=== PATIENT | male | born 1975 | race African-American/Black ===

== ENCOUNTER → 2016-05-25 | Outpatient (CLI) | payer OTHER ==
[~2016-05-25] MED LIST: ALLE180T33 PO; AMIT10TA PO; CONRAY-43 43% 50ML VIAL (Q9960) As Ordered ONE; CYCL10TA PO; GABA-283 PO; LISI10TA4 PO; MAXA10TA14 PO; OMEG100011 PO; PIRO20CA2 PO; SILD50TA GT; ZANTTAB PO; ZOLO100T PO
--- NOTE | 2016-05-25 12:16 | REP ---
LEFT SHOULDER MRI WITHOUT AND WITH CONTRAST ARTHROGRAM: 05/25/2016 CLINICAL HISTORY: Shoulder pain. Order states noncontrast MR was suspicious for SLAP tear. Neither the images or report are provided from that study. TECHNIQUE: Coronal T1 with fat suppressed coronal and axial T2 images followed by gadolinium arthrogram injection with axial fat suppressed T1 and PD sequences, coronal T1 and fat suppressed T2, sagittal T2 and an ABER fat suppressed T1 sequence. FINDINGS: The AC joint shows some mild hypertrophic changes inferiorly indenting musculotendinous junction of the rotator cuff. There is trace amount of bursal surface fraying along the supraspinatus and minimal tendinosis tendinopathy evident. No full-thickness tear or retraction of that tendon is evident. No atrophy of the muscle belly. Glenohumeral joint does not show any significant effusion and there is no visible paralabral cyst. Biceps tendon is seated in its groove. Subscapularis tendon and muscle are intact as are the infraspinatus and teres minor tendons and muscles. The biceps labral complex appear grossly intact. Undermining of the superior labrum noted on the coronal and axial arthrogram images consistent with a SLAP tear of the superior labrum. The anterior and posterior labrum do not show definite tears. There is a type 2 anterior capsular insertion on the glenoid and some ballooning of the posterior capsular margin as well. No bone bruise or fracture of the humeral head, bony coracoid, glenoid and acromion. The spinal glenoid notch is without mass or fluid collection. The ABER sequence confirms the above. The coracohumeral ligaments are grossly intact. The coracoclavicular ligament not included in the coronal field of view. No loose body in the glenohumeral joint on the contrast arthrogram images. Fluid tracks into the subcoracoid bursa. IMPRESSION: 1. Tendinopathy of the supraspinatus with some bursal surface fraying but no full-thickness tear, retraction of the tendon or atrophy of the muscle belly. 2. Glenohumeral joint shows evidence of a superior labral tear or SLAP lesion on contrast arthrogram images. No loose body. 3. The subscapularis, infraspinatus and teres minor without significant findings. 4. Biceps tendon well-seated in its groove and biceps labral complex intact. Signed by Anshu Little MD 05/25/2016 05:06 P
--- NOTE | 2016-05-25 17:10 | REP ---
Procedure: Left shoulder arthrogram The procedure was performed under the direct supervision of Dr. Little. History: Left shoulder pain The benefits and risks including but not limited to pain, infection, bleeding and anaphylaxis were explained to the patient and informed consent was obtained. Technique: The left glenohumeral joint space was localized using fluoroscopic guidance. The skin was prepped and draped in a sterile fashion. 1% lidocaine was used as a local anesthetic. Using fluoroscopic guidance a 22 gauge spinal needle was inserted and advanced into the joint. 0.5 ml of Conray 43 was injected to verify placement. 11 ml of a solution containing 20 ml of sterile saline and 0.15 ml of ProHance was injected into the joint. The needle was removed and the patient was taken to MRI for postprocedural imaging. The the patient tolerated the procedure well and there were no immediate complications. 1 second of fluoro time was utilized for this procedure. Reviewed by SENA George 05/25/2016 04:14 PSigned by Anshu Little MD 05/25/2016 05:01 P
== END ==
LOC: M RADPRO 09:15
PROVIDERS: ATTEND Physician Assistant Medical
DX: M24.812 Other specific joint derangements of left shoulder, not elsewhere classified (principal)
CPT/HCPCS: 23350; 73223; 77002; A9576; Q9960

== ENCOUNTER 2016-05-27 00:29 | Emergency (ER) | payer OTHER ==
[~2016-05-27] VITALS: Ht 180.3 cm; Wt 95.3 kg
[2016-05-27] MEDS ORDERED: PIRO20CA2 PO (00:53)
[2016-05-27] MEDS ORDERED: ZOLO100T PO (00:53)
[2016-05-27] MEDS ORDERED: OMEG100011 PO (00:53)
[2016-05-27] MEDS ORDERED: MAXA10TA14 PO (00:53)
[2016-05-27] MEDS ORDERED: CYCL10TA PO (00:53)
[2016-05-27] MEDS ORDERED: LISI10TA4 PO (00:53)
[2016-05-27] MEDS ORDERED: ALLE180T33 PO (00:53)
[2016-05-27] MEDS ORDERED: ZANTTAB PO (00:53)
[2016-05-27] MEDS ORDERED: GABA-283 PO (00:53)
[2016-05-27] MEDS ORDERED: AMIT10TA PO (00:53)
[2016-05-27] MEDS ORDERED: SILD50TA GT (00:53)
[2016-05-27] MEDS ORDERED: GI COCKTAIL 50ML BTL(HYOSCYAMINE/MAALOX/LIDOCAINE VISCOUS)(1:3:1) PO ONE (01:30)
[2016-05-27 06:25] VITALS: BP 122/80
--- NOTE | 2016-05-27 08:11 | REP ---
Clinical: Chest pain. Technique: PA and lateral. Comparison: None. Findings: Mediastinum and cardiac silhouette are normal. Lung [place] are relatively clear without focal consolidation, effusion, or pneumothorax. Trace basilar atelectasis cannot be excluded and should be correlated with physical examination and auscultation. Skeletal structures intact. Impression: Relatively normal examination. Cannot exclude trace left basilar atelectasis and element of bronchitis. Correlation with physical examination and auscultation. No focal consolidation. Signed by Nate Neely MD 05/27/2016 08:02 A
--- NOTE | 2016-05-27 16:38 | ECGEPIP ---
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
--- NOTE | 2016-05-27 16:39 | ECGEPIP ---
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
== END 2016-05-27 06:42 | disposition home or self-care (01) ==
LOC: EDBD 00:29 → M ED 01:25
DX: R07.89 Other chest pain (principal); I10 Essential (primary) hypertension; K21.9 Gastro-esophageal reflux disease without esophagitis; G43.909 Migraine, unspecified, not intractable, without status migrainosus; M54.9 Dorsalgia, unspecified; Z79.899 Other long term (current) drug therapy

== ENCOUNTER → 2018-05-29 | Outpatient (REF) | payer OTHER ==
[~2018-05-29] MED LIST changes: -CONRAY-43 43% 50ML VIAL (Q9960) As Ordered ONE; -GABA-283 PO; +GABA-845 PO
== END ==
LOC: M SFHCLERA 15:20
PROVIDERS: ATTEND Physician Assistant
DX: J02.9 Acute pharyngitis, unspecified (principal)

== ENCOUNTER → 2019-10-10 | Outpatient (REF) | payer OTHER ==
[~2019-10-10] MED LIST changes: +CYCL-707 PO; -CYCL10TA PO; +ZANT150T40 PO; -ZANTTAB PO
== END ==
LOC: M LAB REF 14:41
PROVIDERS: ATTEND Physician Assistant
DX: Z11.59 Encounter for screening for other viral diseases (principal); Z20.828 Contact with and (suspected) exposure to other viral communicable diseases

== ENCOUNTER → 2020-12-09 | Outpatient (CLI) | payer OTHER ==
[~2020-12-09] MED LIST changes: -AMIT10TA PO; +AMIT10TA7 PO; +GABA-283 PO; -GABA-845 PO; +LISI10TA22 PO; -LISI10TA4 PO
--- NOTE | 2020-12-09 17:15 | REP ---
INDICATION: KNEE PAIN. COMPARISON: None. TECHNIQUE: Sagittal spin-echo proton density, T2 STIR and T2 FLASH. Coronal spin-echo proton density and fat suppressed proton density. Axial fat suppressed proton density. FINDINGS: In the posterior horn of the lateral meniscus there is T2 hyper signal which is contiguous with the posterior meniscal surface and nearly contiguous with the inferior articular surface. The anterior horn of the lateral meniscus is unremarkable. The anterior and posterior horns of the medial meniscus are within normal limits. The anterior and posterior cruciate ligaments are intact. The quadriceps and patellar tendons are intact. 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 The medial and lateral collateral ligaments are intact. The medial and lateral patellar retinacula are intact. There is thinning and irregularity of the medial compartmental articular cartilages. In the subchondral anterior proximal medial tibial metaphysis there is a patch of T2 hyper signal. The posterior lateral femoral condyle there is patchy T2 hyper signal in a subchondral location. There is no joint effusion or Ga's cyst. IMPRESSION: 1. There is no definite acute internal derangement, however, there are meniscal signal changes seen in the posterior horn of the lateral meniscus as described above. A subtle peripheral tear cannot be completely ruled out. 2. There is subchondral edema in the proximal medial tibial metaphysis and the lateral femoral condyle likely secondary to chondromalacia and repeated micro trauma. 3. Other findings as described above. <Electronically signed by Orlando Alex > 12/09/20 [id number]
--- NOTE | 2020-12-09 17:20 | REP ---
INDICATION: SEVERE BILATERAL KNEE PAIN. COMPARISON: None. TECHNIQUE: Sagittal spin-echo proton density, T2 STIR and T2 FLASH. Coronal spin-echo proton density and fat suppressed proton density. Axial fat suppressed proton density. FINDINGS: The anterior and posterior horns of the medial meniscus are within normal limits. The anterior and posterior horns of the lateral meniscus are within normal limits. The anterior and posterior cruciate ligaments are intact. The quadriceps and patellar tendons are intact. 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 The medial and lateral collateral ligaments are intact. The medial and lateral patellar retinacula are intact. There is thinning and irregularity of all articular cartilages. There is medial compartmental narrowing and tricompartmental marginal osteophytosis. There is patchy T2 hyper signal seen in the subchondral proximal medial tibial metaphysis. There is T2 hyper signal seen in the subchondral posterior medial femoral condyle. There is no joint effusion or Ga's cyst. IMPRESSION: 1. There is no evidence of acute internal derangement. 2. 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 3. Other findings as described above. <Electronically signed by Orlando Alex > 12/09/20 [id number]
== END ==
LOC: M RAD 15:38
PROVIDERS: ATTEND Internal Medicine
DX: M94.262 Chondromalacia, left knee (principal); M25.562 Pain in left knee; M25.561 Pain in right knee; M94.261 Chondromalacia, right knee

== ENCOUNTER → 2021-11-04 | Outpatient (REF) | payer OTHER ==
[~2021-11-04] MED LIST changes: -MAXA10TA14 PO; +RIZA10TA64 PO
[2021-11-04 14:57] LABS: GC DNA AMPLIFICATION NEGATIVE (NEGATIVE)
== END ==
LOC: M WUC 12:37
PROVIDERS: ATTEND Physician Assistant
DX: N39.0 Urinary tract infection, site not specified (principal)

== ENCOUNTER → 2022-04-05 | Outpatient (CLI) | payer OTHER | LOC: M SOG 10:10 | PROVIDERS: ATTEND Orthopaedic Surgery | DX: M17.0 Bilateral primary osteoarthritis of knee (principal) ==

== ENCOUNTER → 2022-09-21 | Outpatient (CLI) | payer OTHER ==
[2022-09-21 17:33] LABS: HIV 1&2 SCREEN NEGATIVE (NEGATIVE)
[2022-09-21 19:07] LABS: GC DNA AMPLIFICATION NEGATIVE (NEGATIVE)
== END ==
LOC: M WUC 12:43
PROVIDERS: ATTEND Nurse Practitioner Family
DX: Z11.3 Encounter for screening for infections with a predominantly sexual mode of transmission (principal); R30.0 Dysuria

== ENCOUNTER → 2022-12-02 | Outpatient (CLI) | payer OTHER ==
[~2022-12-02] MED LIST changes: -GABA-283 PO; +GABA-284 PO
== END ==
LOC: M SOG 07:54
PROVIDERS: ATTEND Orthopaedic Surgery
DX: M17.0 Bilateral primary osteoarthritis of knee (principal)

== ENCOUNTER → 2022-12-09 | Outpatient (CLI) | payer OTHER ==
[~2022-12-09] MED LIST changes: +GASTROGRAFIN SOLUTION 30ML As Ordered ONE; +ISOVUE-370 76% 100ML VIAL As Ordered ONE
== END ==
LOC: M RAD 07:59
PROVIDERS: ATTEND Internal Medicine
DX: K45.8 Other specified abdominal hernia without obstruction or gangrene (principal)
CPT/HCPCS: 74177; Q9963; Q9967

== ENCOUNTER → 2023-06-06 | Outpatient (CLI) | payer OTHER ==
[~2023-06-06] MED LIST changes: -GASTROGRAFIN SOLUTION 30ML As Ordered ONE; -ISOVUE-370 76% 100ML VIAL As Ordered ONE
[2023-06-06 15:33] LABS: BASO # 0.1 10^3/uL (0.0-0.2); BASO % 0.6 % (0.0-1.0); EOS # 0.4 10^3/uL (0.0-0.5); EOS % 4.7 % (0.0-3.0); HEMOGLOBIN 14.3 g/dl (13.5-17.5); LYMPH # 1.8 10^3/uL (1.5-5.0); LYMPH % 18.6 % (24.0-44.0); MEAN CORPUSCULAR HEMOGLOBIN 31.5 pg (27.0-33.0); MEAN CORPUSCULAR HGB CONC 33.3 g/dl (32.0-36.5); MEAN CORPUSCULAR VOLUME 94.7 fl (80.0-96.0); MONO # 0.8 10^3/uL (0.0-0.8); MONO % 8.5 % (2.0-8.0); NEUTROPHILS # 6.3 10^3/uL (1.5-8.5); NEUTROPHILS % 67.3 % (36.0-66.0); PLATELET COUNT, AUTOMATED 317 10^3/uL (150-450); RED BLOOD COUNT 4.54 10^6/uL (4.30-6.10); WHITE BLOOD COUNT 9.4 10^3/uL (4.0-10.0)
[2023-06-06 15:39] LABS: ERYTHROCYTE SEDIMENTATION RATE 34 mm/hr (0-15)
== END ==
LOC: M PLALAB 13:45
PROVIDERS: ATTEND Orthopaedic Surgery
DX: M25.561 Pain in right knee (principal)

== ENCOUNTER → 2023-06-08 | Outpatient (CLI) | payer OTHER | LOC: M PLARAD 15:13 | PROVIDERS: ATTEND Orthopaedic Surgery | DX: M17.0 Bilateral primary osteoarthritis of knee (principal); M25.462 Effusion, left knee ==

== ENCOUNTER → 2023-06-24 | Outpatient (CLI) | payer OTHER | LOC: M RAD 10:56 | PROVIDERS: ATTEND Orthopaedic Surgery | DX: M25.561 Pain in right knee (principal) ==

== ENCOUNTER → 2024-07-03 | Outpatient (REF) | payer OTHER | LOC: M LAB REF 16:41 | PROVIDERS: ATTEND Neuromusculoskeletal Medicine, Sports Medicine | DX: M17.12 Unilateral primary osteoarthritis, left knee (principal) ==

== ENCOUNTER → 2024-10-29 | Outpatient (CLI) | payer OTHER ==
[~2024-10-29] MED LIST changes: +AMIT10TA11 PO; -AMIT10TA7 PO; +AMIT25TA19 PO; +MELA5TAB58 PO; +RANI15TA PO
[2024-10-29 12:05] LABS: BASO # 0.1 10^3/uL (0.0-0.2); BASO % 0.8 % (0.0-1.0); EOS # 0.1 10^3/uL (0.0-0.5); EOS % 0.9 % (0.0-3.0); LYMPH # 1.9 10^3/uL (1.5-5.0); LYMPH % 25.4 % (24.0-44.0); MONO # 0.6 10^3/uL (0.0-0.8); MONO % 8.1 % (2.0-8.0); NEUTROPHILS # 4.8 10^3/uL (1.5-8.5); NEUTROPHILS % 64.5 % (36.0-66.0); PLATELET COUNT, AUTOMATED 288 10^3/uL (150-450)
[2024-10-29 12:31] LABS: ALT/SGPT 34.0 U/L (7.0-40); AST/SGOT 24.0 U/L (<34); CALCIUM LEVEL 10.2 MG/DL (8.5-10.1); CARBON DIOXIDE LEVEL 29.0 MMOL/L (20-31); CHLORIDE LEVEL 105.0 MMOL/L (98-107); CREATININE FOR GFR 1.2 MG/DL (0.70-1.30); GLOMERULAR FILTRATION RATE 74.1 (>60); POTASSIUM SERUM 4.4 MMOL/L (3.5-5.1); SODIUM LEVEL 143.0 MMOL/L (136-145)
== END ==
LOC: M RAD 11:33
PROVIDERS: ATTEND Neuromusculoskeletal Medicine, Sports Medicine
DX: M17.0 Bilateral primary osteoarthritis of knee (principal); M25.462 Effusion, left knee; M25.562 Pain in left knee

== ENCOUNTER → 2024-10-31 | Outpatient (REF) | payer OTHER | LOC: M LAB REF 16:45 | PROVIDERS: ATTEND Neuromusculoskeletal Medicine, Sports Medicine | DX: M25.562 Pain in left knee (principal) ==

== ENCOUNTER 2024-11-04 09:15 | Outpatient (RCR) | payer OTHER ==
[2024-11-12] MEDS ORDERED: ADDE20CA3 PO (08:32)
[2024-11-12] MEDS ORDERED: VITA200030 PO (08:34)
[2024-11-12] MEDS ORDERED: CYAN100049 PO (08:34)
[2024-11-12] MEDS ORDERED: DICL100G10 TOP (08:37)
[2024-11-12] MEDS ORDERED: BENA25CA4 PO (08:37)
[2024-11-12] MEDS ORDERED: JARD1TAB3 PO (08:38)
[2024-11-12] MEDS ORDERED: FAMO40TA3 PO (08:39)
[2024-11-12] MEDS ORDERED: FLON1SPR NARES (08:39)
[2024-11-12] MEDS ORDERED: LOSA25TA13 PO (08:41)
[2024-11-12] MEDS ORDERED: GABA-1172 PO (08:41)
[2024-11-12] MEDS ORDERED: THERTAB52 PO (08:43)
[2024-11-12] MEDS ORDERED: RIZA10TA58 PO (08:45)
[2024-11-12] MEDS ORDERED: B-2100TA PO (08:45)
[2024-11-12] MEDS ORDERED: TIZA10TA PO (08:47)
[2024-11-12] MEDS ORDERED: ROSU40TA81 PO (08:47)
[2024-11-12] MEDS ORDERED: OLOP5DRO17 OU (08:50)
[2024-11-12] MEDS ORDERED: CELLOPD OU (08:52)
[2024-11-12] MEDS ORDERED: REFR0.5D8 OU (08:52)
[2024-11-13] MEDS ORDERED: ASPI81TAEC PO (09:48)
[2024-11-13] MEDS ORDERED: FERR1TAB8 PO (09:48)
[2024-11-19] MEDS ORDERED: VALI2TAB PO (19:20)
[2024-11-19] MEDS ORDERED: REGL10TA6 PO (19:51)
== END 2024-11-26 ==
LOC: M PT 09:15
PROVIDERS: ATTEND Neuromusculoskeletal Medicine, Sports Medicine
DX: Z47.1 Aftercare following joint replacement surgery (principal); M17.0 Bilateral primary osteoarthritis of knee

== ENCOUNTER 2024-11-12 06:24 | Observation (INO) | payer OTHER ==
[2024-11-12] VITALS (7 sets, daily range): BP systolic 114–129; BP diastolic 70–83; TEMP 97.1–98.6; O2SAT 95–99
[~2024-11-12] VITALS: Ht 180.3 cm; Wt 93.6 kg
[2024-11-12] MEDS ORDERED: LR 1,000 ML IV SCH (06:30)
[2024-11-12] MEDS ORDERED: MIDAZOLAM INJ 2 MG/2 ML VIAL As Ordered ONE (07:07)
[2024-11-12] MEDS ORDERED: LIDOCAINE 2% 100 MG/5 ML SDV (FOR ANES.) As Ordered ONE (07:08)
[2024-11-12] MEDS ORDERED: ONDANSETRON 4MG 2ML VIAL As Ordered ONE (07:08)
[2024-11-12] MEDS: ROPIvacaine 0.5% 30ML VIAL PN ONE (07:35)
[2024-11-12] MEDS: dexAMETHasone 10 MG/1 ML VIAL PRES.FREE PN ONE (07:35)
[2024-11-12] MEDS ORDERED: MED REC IN PROGRESS XX SCH (07:55)
[2024-11-12] MEDS: MIDAZOLAM INJ 2 MG/2 ML VIAL IV PRN (07:55)
[2024-11-12] MEDS: TRANEXAMIC ACID 100 MG/ML 10ML VIAL As Ordered ONE (08:29)
[2024-11-12] MEDS ORDERED: ADDE20CA3 PO (08:32)
[2024-11-12] MEDS ORDERED: CYAN100049 PO (08:34)
[2024-11-12] MEDS ORDERED: VITA200030 PO (08:34)
[2024-11-12] MEDS ORDERED: DICL100G10 TOP (08:37)
[2024-11-12] MEDS ORDERED: BENA25CA4 PO (08:37)
[2024-11-12] MEDS ORDERED: JARD1TAB3 PO (08:38)
[2024-11-12] MEDS ORDERED: FAMO40TA3 PO (08:39)
[2024-11-12] MEDS ORDERED: FLON1SPR NARES (08:39)
[2024-11-12] MEDS ORDERED: LOSA25TA13 PO (08:41)
[2024-11-12] MEDS ORDERED: GABA-1172 PO (08:41)
[2024-11-12] MEDS ORDERED: THERTAB52 PO (08:43)
[2024-11-12] MEDS ORDERED: GLYCOPYRROLATE INJ 0.2 MG/ML 2 ML VIAL As Ordered ONE (08:44)
[2024-11-12] MEDS ORDERED: B-2100TA PO (08:45)
[2024-11-12] MEDS ORDERED: RIZA10TA58 PO (08:45)
[2024-11-12] MEDS ORDERED: TIZA10TA PO (08:47)
[2024-11-12] MEDS ORDERED: ROSU40TA81 PO (08:47)
[2024-11-12] MEDS ORDERED: OLOP5DRO17 OU (08:50)
[2024-11-12] MEDS ORDERED: REFR0.5D8 OU (08:52)
[2024-11-12] MEDS ORDERED: CELLOPD OU (08:52)
[2024-11-12] MEDS ORDERED: HOME MED LIST COMPLETE! XX SCH (08:55)
[2024-11-12] MEDS: VANCOMYCIN 1000MG/20ML VIAL As Ordered ONE (09:18)
[2024-11-12] MEDS: ceFAZolin SOD 2 GM IV ONCE IV ONE (09:23)
[2024-11-12] MEDS: KETOROLAC 30 MG/ML 1 ML VIAL As Ordered ONE (10:53)
[2024-11-12] MEDS ORDERED: MORPHINE 4 MG/ML 1 ML VIAL IV PRN ×2 (11:00→11:10)
[2024-11-12] MEDS ORDERED: ONDANSETRON 4MG 2ML VIAL IV PRN ×2 (11:00→11:10)
[2024-11-12] MEDS ORDERED: FLUTICASONE PROPIONATE 0.05% NASAL SPRAY 16 GM NARES PRN (11:55)
[2024-11-12] MEDS ORDERED: OLOPATADINE 0.1% OPHTH SOL 5ML OU PRN (11:55)
[2024-11-12] MEDS ORDERED: MOM 30 ML SUSPENSION UDC PO PRN (11:55)
[2024-11-12] MEDS ORDERED: RIZATRIPTAN MLT 10 MG TAB PO PRN (11:55)
[2024-11-12] MEDS: LR 1,000 ML IV SCH (12:01)
[2024-11-12] MEDS ORDERED: PILL CUTTER 1 EACH XX PRN (12:20)
[2024-11-12] MEDS: ACETAMINOPHEN *IV* 1,000 MG in IV 1 EA IV SCH (14:34)
[2024-11-12] MEDS: GABAPENTIN 300 MG CAP PO SCH (16:35)
[2024-11-12] MEDS: ceFAZolin SODIUM 2 GM in DEXTROSE 5% (D5W) ADV/MINI-BAG 50 ML IV SCH (17:36)
[2024-11-12] MEDS: HYDROmorphone 2 MG TAB PO PRN (18:45)
[2024-11-12] MEDS: dexAMETHasone 10 MG/1 ML VIAL PRES.FREE IV ONE (18:46)
[2024-11-12] MEDS: ROSUVASTATIN 10 MG TAB PO SCH (21:36)
[2024-11-12] MEDS: MULTIVITAMINS/MINERALS THERAP 1 TAB PO SCH (21:37)
[2024-11-12] MEDS: AMITRIPTYLINE 25 MG TABLET PO SCH (21:37)
[2024-11-12] MEDS: FAMOTIDINE 20 MG TAB PO SCH (21:39)
[2024-11-12] MEDS: LOSARTAN 25 MG TAB PO SCH (21:39)
[2024-11-13] VITALS: BP 118/70; TEMP 97.5; O2SAT 98
[2024-11-13 04:30] VITALS: BP 104/64; TEMP 97.1; O2SAT 97
[2024-11-13 07:53] LABS: BASO # 0.0 10^3/uL (0.0-0.2); BASO % 0.1 % (0.0-1.0); EOS # 0.0 10^3/uL (0.0-0.5); EOS % 0.0 % (0.0-3.0); LYMPH # 1.8 10^3/uL (1.5-5.0); LYMPH % 8.4 % (24.0-44.0); MONO # 1.8 10^3/uL (0.0-0.8); MONO % 8.7 % (2.0-8.0); NEUTROPHILS # 17.4 10^3/uL (1.5-8.5); NEUTROPHILS % 82.2 % (36.0-66.0); PLATELET COUNT, AUTOMATED 343 10^3/uL (150-450)
[2024-11-13 08:00] VITALS: BP 122/87; TEMP 98.5; O2SAT 95
[2024-11-13] MEDS: FERROUS SULFATE 325 MG TAB PO SCH (08:19)
[2024-11-13 08:20] LABS: CALCIUM LEVEL 9.5 MG/DL (8.5-10.1); CARBON DIOXIDE LEVEL 23.0 MMOL/L (20-31); CHLORIDE LEVEL 104.0 MMOL/L (98-107); CREATININE FOR GFR 1.23 MG/DL (0.70-1.30); GLOMERULAR FILTRATION RATE 72.0 (>60); MAGNESIUM LEVEL 1.8 MG/DL (1.8-2.4); POTASSIUM SERUM 4.5 MMOL/L (3.5-5.1); SODIUM LEVEL 135.0 MMOL/L (136-145)
[2024-11-13] MEDS: ASCORBIC ACID 500 MG TAB PO SCH (08:20)
[2024-11-13] MEDS: CYANOCOBALAMIN 500 MCG TAB PO SCH (08:20)
[2024-11-13] MEDS: SENNA 8.6 MG TAB PO SCH (08:20)
[2024-11-13] MEDS: ASPIRIN 81 MG ENTERIC TABLET PO SCH (08:20)
[2024-11-13] MEDS: VITAMIN D 1,000 INTERNATIONAL UNITS TABLET PO SCH (08:21)
[2024-11-13] MEDS: DEXTROAMPHETAMINE/AMPHETAMINE 5 MG *ER* CAPSULE PO SCH (09:45)
[2024-11-13] MEDS ORDERED: FERR1TAB8 PO (09:48)
[2024-11-13] MEDS ORDERED: ASPI81TAEC PO (09:48)
== END 2024-11-13 10:50 | disposition home health service (06) ==
LOC: M SDC 06:24 → M RR INP 06:25 → M MS5PR 14:45
PROVIDERS: ADMIT Internal Medicine; ATTEND Neuromusculoskeletal Medicine, Sports Medicine
DX: M17.12 Unilateral primary osteoarthritis, left knee (principal); I10 Essential (primary) hypertension; R73.03 Prediabetes; E78.5 Hyperlipidemia, unspecified; G62.9 Polyneuropathy, unspecified; F43.10 Post-traumatic stress disorder, unspecified; F90.9 Attention-deficit hyperactivity disorder, unspecified type; G43.909 Migraine, unspecified, not intractable, without status migrainosus; K21.9 Gastro-esophageal reflux disease without esophagitis; Z87.81 Personal history of (healed) traumatic fracture; Z98.1 Arthrodesis status; E73.9 Lactose intolerance, unspecified; Z98.890 Other specified postprocedural states; Z79.899 Other long term (current) drug therapy
CPT/HCPCS: 27447; 73560; 80048; 83735; 85025; 88300; 96374; 96375; 96376; 97110; 97161; 97530; C1776; G0378; J0131; J0665; J0666; J0688; J0690; J1100; J1596; J1885; J2250; J2405; J3010; J3373; S2900

== ENCOUNTER 2024-11-19 13:45 | Emergency (ER) | payer OTHER ==
[~2024-11-19] VITALS: Ht 180.3 cm; Wt 92.3 kg
[~2024-11-19 13:45] MED LIST changes: +ADDE20CA3 PO; +ASPI81TAEC PO; +B-2100TA PO; +BENA25CA4 PO; +CELLOPD OU; +CYAN100049 PO; +DICL100G10 TOP; +FAMO40TA3 PO; +FERR1TAB8 PO; +FLON1SPR NARES; +GABA-1172 PO; +JARD1TAB3 PO; +LOSA25TA13 PO; +OLOP5DRO17 OU; +REFR0.5D8 OU; +RIZA10TA58 PO; +ROSU40TA81 PO; +THERTAB52 PO; +TIZA10TA PO; +VITA200030 PO
[2024-11-19 14:51] LABS: BASO # 0.0 10^3/uL (0.0-0.2); BASO % 0.3 % (0.0-1.0); EOS # 0.4 10^3/uL (0.0-0.5); EOS % 3.1 % (0.0-3.0); LYMPH # 1.8 10^3/uL (1.5-5.0); LYMPH % 15.1 % (24.0-44.0); MONO # 1.3 10^3/uL (0.0-0.8); MONO % 10.9 % (2.0-8.0); NEUTROPHILS # 8.2 10^3/uL (1.5-8.5); NEUTROPHILS % 69.9 % (36.0-66.0); PLATELET COUNT, AUTOMATED 374 10^3/uL (150-450)
[2024-11-19 15:28] LABS: CALCIUM LEVEL 9.1 MG/DL (8.5-10.1); CARBON DIOXIDE LEVEL 28.0 MMOL/L (20-31); CHLORIDE LEVEL 102.0 MMOL/L (98-107); CREATININE FOR GFR 1.05 MG/DL (0.70-1.30); GLOMERULAR FILTRATION RATE 87.0 (>60); POTASSIUM SERUM 5.9 MMOL/L (3.5-5.1); SODIUM LEVEL 136.0 MMOL/L (136-145)
[2024-11-19] MEDS: ONDANSETRON 4MG 2ML VIAL IV ONE (17:08)
[2024-11-19] MEDS ORDERED: VALI2TAB PO (19:20)
[2024-11-19 19:50] VITALS: BP 128/72; O2SAT 100
[2024-11-19] MEDS ORDERED: REGL10TA6 PO (19:51)
[2024-11-19 20:05] VITALS: TEMP 97.2
== END 2024-11-19 20:10 | disposition home or self-care (01) ==
LOC: M ED 13:45
DX: H81.10 Benign paroxysmal vertigo, unspecified ear (principal); I44.4 Left anterior fascicular block; E11.9 Type 2 diabetes mellitus without complications; K21.9 Gastro-esophageal reflux disease without esophagitis; Z88.8 Allergy status to other drugs, medicaments and biological substances; Z79.1 Long term (current) use of non-steroidal anti-inflammatories (NSAID); Z79.899 Other long term (current) drug therapy
CPT/HCPCS: 70450; 70551; 80048; 85025; 93005; 96374; 96375; 99284; J2405; J2765; J3360

== ENCOUNTER → 2024-11-25 | Outpatient (CLI) | payer OTHER ==
[~2024-11-25] MED LIST changes: +REGL10TA6 PO; +VALI2TAB PO
== END ==
LOC: M SOG 07:30
PROVIDERS: ATTEND Neuromusculoskeletal Medicine, Sports Medicine
DX: M17.12 Unilateral primary osteoarthritis, left knee (principal)